=== PATIENT | female | born 1980 | race Caucasian/White ===

== ENCOUNTER 2017-03-17 11:41 | Emergency (ER) | payer BC ==
[2017-03-17 11:53] VITALS: BP 127/71
--- NOTE | 2017-03-17 12:48 | RAD ---
INDICATION: Right foot injury. TECHNIQUE: 3 views of the right foot were obtained. FINDINGS: The bones are in normal alignment. No fracture is seen. Joint spaces appear maintained. IMPRESSION: NO EVIDENCE FOR FRACTURE.
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
== END 2017-03-17 13:15 | disposition home or self-care (01) ==
LOC: UCEAST 11:41
DX: S93.601S Unspecified sprain of right foot, sequela (principal); S93.504 Unspecified sprain of right lesser toe(s); W51.XXXS Accidental striking against or bumped into by another person, sequela; F41.9 Anxiety disorder, unspecified
CPT/HCPCS: 99211; G0463